=== PATIENT | male | born 1980 | race African-American/Black ===

== ENCOUNTER 2016-10-10 16:47 | Emergency (ER) | payer OTHER ==
[~2016-10-10] VITALS: Ht 170.2 cm; Wt 108.9 kg
[2016-10-10] MEDS: Oxycodone/Acetaminophen 5-325 ORAL ONE (17:22)
[2016-10-10] MEDS: TdaP Vaccine 0.5ml Syr IM ONE (17:22)
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
[2016-10-10 19:19] VITALS: BP 121/91
[2016-10-10] MEDS: Lidocaine 1% 10mg/ml/Epi 0.005mg/ml 30ml vial INJ ONE (19:31)
[2016-10-10] MEDS ORDERED: ACETAMINOPHEN-1 EAC1 ORAL (19:53)
[2016-10-10] MEDS ORDERED: KEFLEX500 MG ORAL (19:53)
[2016-10-10] MEDS: Cephalexin 500mg cap ORAL ONE (19:58)
[2016-10-10 20:02] VITALS: BP 117/87
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
== END 2016-10-10 20:02 | disposition home or self-care (01) ==
LOC: EMR 18:18
DX: S81.812A Laceration without foreign body, left lower leg, initial encounter (principal); V18.0XXA Pedal cycle driver injured in noncollision transport accident in nontraffic accident, initial encounter; Y93.55 Activity, bike riding; Y92.828 Other wilderness area as the place of occurrence of the external cause; Z23 Encounter for immunization
CPT/HCPCS: 12001; 73590; 90471; 90715; 99284; Z7502

== ENCOUNTER 2016-10-12 07:49 | Emergency (ER) | payer OTHER ==
[~2016-10-12] VITALS: Ht 172.7 cm; Wt 108.9 kg
[~2016-10-12 07:49] MED LIST: ACETAMINOPHEN-1 EAC1 ORAL; KEFLEX500 MG ORAL
[2016-10-12] MEDS ORDERED: Bacitracin Oint UD TOPIC ONE (08:02)
[2016-10-12] MEDS ORDERED: IBUPROFEN600 MG ORAL (08:07)
[2016-10-12 08:11] VITALS: BP 135/96
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
[2016-10-12 08:16] VITALS: BP 135/96
== END 2016-10-12 08:17 | disposition home or self-care (01) ==
LOC: EMR 08:08
DX: Z09 Encounter for follow-up examination after completed treatment for conditions other than malignant neoplasm (principal)
CPT/HCPCS: 99283

== ENCOUNTER 2017-04-01 11:46 | Emergency (ER) | payer OTHER ==
[~2017-04-01] VITALS: Ht 170.2 cm; Wt 113.4 kg
[~2017-04-01 11:46] MED LIST changes: +IBUPROFEN600 MG ORAL
[2017-04-01 12:04] VITALS: BP 144/89
[2017-04-01] MEDS ORDERED: PREDNISONE20 MG ORAL (12:23)
[2017-04-01] MEDS ORDERED: BENADRYL25 MG ORAL (12:23)
[2017-04-01] MEDS ORDERED: KENALOG 0.5% CR15 GM APPLIC (12:23)
[2017-04-01] MEDS ORDERED: PredniSONE 20mg tab ORAL ONE (12:30)
--- NOTE | 2017-04-01 12:39 | Emergency Room Report ---
History of Present Illness General Chief Complaint: Skin Rash/Abscess Present Illness HPI The patient is a 37-year-old male presenting for rash to the hands, back, and groin. He denies any pain. Symptoms began 2 weeks prior for no known reason. He denies any known allergies. He denies history of eczema. He states that this began as little clear bumps on the hands and then progressed to the other areas. It is intensely itchy. He states that he has "popped" some of these lesions which produced a clear fluid. He states that he is up-to-date with immunizations. He denies any other symptoms including nausea, vomiting, fever, chills, penile discharge, testicular pain, abdominal pain Allergies: Coded Allergies: No Known Allergies (Unverified , 10/10/16) Patient History Past Medical History: see triage record Pertinent Family History: none Reviewed Nursing Documentation: PMH: Agreed, PSxH: Agreed Review of Systems All Other Systems: negative except mentioned in HPI Physical Exam Vital Signs Date Time Temp Pulse Resp B/P Pulse Ox O2 Delivery O2 Flow Rate FiO2 04/01/17 11:54 98.1 99 20 144/89 99 Room Air Sp02 EP Interpretation: reviewed, normal General Appearance: no apparent distress, alert, GCS 15, non-toxic Head: normocephalic, atraumatic Eyes: bilateral eye PERRL, bilateral eye normal inspection ENT: hearing grossly normal, normal pharynx, no angioedema, normal voice Gastrointestinal: soft, non-distended, no guarding, no rebound, other - midline surgical scar Genitourinary: normal inspection, no CVA tenderness Musculoskeletal: back normal, gait/station normal, normal range of motion, non- tender Neurologic: alert, oriented x3, responsive, motor strength/tone normal, sensory intact, speech normal Psychiatric: judgement/insight normal, memory normal, mood/affect normal, no suicidal/homicidal ideation Skin: rash - vesicles of the hands and inguinal region. Clear fluid filled. Lymphatic: no adenopathy Medical Decision Making PA Attestation Dr. Blake is my supervising physician. Patient management was discussed with my supervising physician Diagnostic Impression: Primary Impression: Dyshidrotic eczema ER Course The patient is a 37 yo M presenting for itchy rash Ddx considered include but not limited to insect bite, contact dermatitis, eczema, cellulitis, STD, syphilis, among others PE: afebrile. NAD vesicles of the hands including palmar aspect and inguinal region. Clear fluid filled. No chancre. No penile DC. Non tender. No erythema. The patient will be treated with topical and oral steroids. ER precautions given Last Vital Signs Date Time Temp Pulse Resp B/P Pulse Ox O2 Delivery O2 Flow Rate FiO2 04/01/17 12:04 98.1 85 20 144/89 99 Room Air Status: improved Disposition: HOME, SELF-CARE Condition: Improved Scripts Triamcinolone Acet (Triamcinolone Acetonide) 15 Gm Cream..g. 15 GM APPLIC TID, #15 GM Prov: JORJE HOROWITZ.A. 04/01/17 Diphenhydramine Hcl* (BENADRYL*) 25 Mg Capsule 25 MG ORAL Q6H Y for Itching, #30 CAP Prov: JORJE HOROWITZ P.A. 04/01/17 Prednisone* (PREDNISONE*) 20 Mg Tablet 40 MG ORAL DAILY, #8 TAB Prov: JORJE HOROWITZ.A. 04/01/17 Referrals: [facility] CARE,REFERRING (PCP) Patient Instructions: Rash, Hand Dermatitis Additional Instructions: I discussed my findings with the patient. All questions and concerns have been answered. Treatment and medication compliance have been addressed. I advised the patient that they need to follow up with PMD in 3-5 days. Return to ED if symptoms worsen, new symptoms arise, or if needed for any reason. Patient verbalized understanding of discharge instructions. JORJE HOROWITZ Apr 01, 2017 12:39
[2017-04-01 13:58] VITALS: BP 144/89
== END 2017-04-01 13:00 | disposition home or self-care (01) ==
LOC: EMR 12:11
DX: L30.1 Dyshidrosis [pompholyx] (principal)
CPT/HCPCS: 99284

== ENCOUNTER 2017-06-15 13:38 | Emergency (ER) | payer OTHER ==
[~2017-06-15] VITALS: Ht 172.7 cm; Wt 113.4 kg
[~2017-06-15 13:38] MED LIST changes: +BENADRYL25 MG ORAL; +KENALOG 0.5% CR15 GM APPLIC; +PREDNISONE20 MG ORAL
[2017-06-15 13:50] VITALS: BP 128/86
[2017-06-15] MEDS ORDERED: PREDNISONE50 MG ORAL (14:31)
--- NOTE | 2017-06-15 14:32 | Emergency Room Report ---
History of Present Illness General Chief Complaint: Skin Rash/Abscess Source: Patient, Medical Record Present Illness HPI Patient is a 37-year-old male who presents today with complaints of rash that began 3 days ago. Patient states the rash is worse in his groin, on his penis and scrotum. She notes the rash is itchy and he has been using hydrocortisone cream with some relief. He denies any dysuria, penile discharge, pain or associated symptoms. Allergies: Coded Allergies: No Known Allergies (Unverified , 10/10/16) Nursing Documentation-[facility] [place] Past Medical History: No History, Except For Hx Hypertension: No Hx Pacemaker: No Hx Asthma: No Hx COPD: No Hx Diabetes: No Hx Cancer: No Hx Gastrointestinal Problems: No Hx Dialysis: No History Of Psychiatric Problem: No Hx Neurological Problems: No Hx Cerebrovascular Accident: No Hx Seizures: No Review of Systems Skin: Reports: rash All Other Systems: negative except mentioned in HPI Physical Exam Vital Signs Date Time Temp Pulse Resp B/P (MAP) Pulse Ox O2 Delivery O2 Flow Rate FiO2 06/15/17 13:49 97.7 92 14 128/86 95 Room Air Sp02 EP Interpretation: reviewed, normal General Appearance: no apparent distress, alert, GCS 15, non-toxic Head: normocephalic, atraumatic Eyes: bilateral eye normal inspection, bilateral eye PERRL ENT: hearing grossly normal, normal pharynx, no angioedema, normal voice Neck: full range of motion, supple/symm/no masses Respiratory: chest non-tender, lungs clear, normal breath sounds, speaking full sentences Cardiovascular #1: regular rate, rhythm, no edema Cardiovascular #2: 2+ carotid (R), 2+ carotid (L), 2+ radial (R), 2+ radial (L) , 2+ dorsalis pedis (R), 2+ dorsalis pedis (L) Gastrointestinal: normal bowel sounds, non tender, soft, non-distended, no guarding, no rebound Rectal: deferred Genitourinary: normal inspection, no CVA tenderness, other - shallow ulcerated lesions on glans penis, painless, no discharge. No TTP of testicles Musculoskeletal: back normal, gait/station normal, normal range of motion, non- tender, calf tenderness Neurologic: alert, oriented x3, responsive, motor strength/tone normal, sensory intact, speech normal Psychiatric: judgement/insight normal, memory normal, mood/affect normal, no suicidal/homicidal ideation Reflexes: 3+ bicep (R), 3+ bicep (L), 3+ tricep (R), 3+ tricep (L), 3+ knee (R) , 3+ knee (L) Skin: normal color, no rash, warm/dry, well hydrated, other - maculopapular erruption on bilateral groin Lymphatic: no adenopathy Medical Decision Making PA Attestation Supervising physician is Dr. Putnam Diagnostic Impression: Primary Impression: Possible exposure to STD Additional Impression: Allergic urticaria ER Course Patient with painless ulcerated lesions likely and penis, will treat in the ED for syphilis. Patient is given IM Bicillin. Low index of suspicion for herpes as patient has no tenderness to palpation over the heels or lesions. Patient denies any penile discharge, low dose of suspicion for gonorrhea or Chlamydia. Puritic rash on groin, will treat with prednisone for allergic urticaria. Patient is given resources for outpatient followup and instructed to have STD testing done. The patient understands and is agreeable with plan. Last Vital Signs Date Time Temp Pulse Resp B/P (MAP) Pulse Ox O2 Delivery O2 Flow Rate FiO2 06/15/17 13:50 97.7 92 14 128/86 95 Room Air Status: improved Disposition: HOME, SELF-CARE Condition: Stable Scripts Prednisone* (PREDNISONE*) 50 Mg Tablet 50 MG ORAL DAILY for 4 Days, #10 TAB 0 Refills Prov: Thais Gomez 06/15/17 Thais Gomez Jun 15, 2017 14:32
[2017-06-15] MEDS ORDERED: Bicillin LA 1.2 Million Units Syr IM ONE ×2 (14:45)
[2017-06-15 15:07] VITALS: BP 128/86
== END 2017-06-15 15:50 | disposition home or self-care (01) ==
LOC: EMR 15:46
DX: L50.0 Allergic urticaria (principal)
CPT/HCPCS: 96372; 99283; J0561